=== PATIENT | male | born 1995 | race Native Hawaiian/Other Pacific Islander ===

== ENCOUNTER 2020-04-08 18:21 | Emergency (ER) | payer OTHER ==
[~2020-04-08] VITALS: Ht 180.3 cm; Wt 104.3 kg
[2020-04-08 20:42] VITALS: BP 113/80; TEMP 98.7
== END 2020-04-08 20:42 | disposition home or self-care (01) ==
LOC: ED 18:21
DX: J40 Bronchitis, not specified as acute or chronic (principal); S51.811A Laceration without foreign body of right forearm, initial encounter; Z20.828 Contact with and (suspected) exposure to other viral communicable diseases; F17.210 Nicotine dependence, cigarettes, uncomplicated
CPT/HCPCS: 87635; 99283; U0003